=== PATIENT | female | born 1990 | race Caucasian/White ===

== ENCOUNTER 2018-08-01 02:21 | Emergency (ER) | payer OTHER ==
[~2018-08-01] VITALS: Ht 154.9 cm; Wt 49.9 kg
[2018-08-01 02:57] LABS: HEMATOCRIT 34.5 % (37.0-47.0); HEMOGLOBIN 10.9 gm/dL (12.0-15.0); MCH 19.1 pg (26.0-34.0); MCHC 31.6 g/dL (28.0-37.0); MCV 60.3 fL (80.0-100.0); PLATELET COUNT 377 thou/uL (150-400); RBC 5.73 mil/uL (4.20-5.00); RDW 14.5 % (10.5-14.5); WBC 8.9 thou/uL (4.0-11.0)
[2018-08-01 03:03] LABS: CALCIUM 9.5 mg/dL (8.5-10.1); CREATININE 0.7 mg/dL (0.6-1.0); POTASSIUM 3.4 mmol/L (3.5-5.1)
[2018-08-01 03:09] LABS: ALBUMIN 4.3 g/dL (3.4-5.0); TOTAL BILIRUBIN 0.4 mg/dL (<0.1-1.0); TOTAL PROTEIN 8.3 g/dL (6.4-8.2)
[2018-08-01 03:23] LABS: URINE BILIRUBIN NEGATIVE (Negative); URINE BLOOD 2+ (Negative); URINE CLARITY CLEAR; URINE COLOR YELLOW; URINE GLUCOSE-RANDOM* NEGATIVE (Negative); URINE KETONES NEGATIVE (Negative); URINE NITRITE-REFLEX NEGATIVE (Negative); URINE PROTEIN (DIPSTICK) NEGATIVE (Negative); URINE SPECIFIC GRAVITY >= 1.030 (1.005-1.035); URINE UROBILINOGEN 0.2 E.U./dl (0.2-1.0)
[2018-08-01 03:24] LABS: URINE LEUKOCYTES-REFLEX 1+ (Negative)
[2018-08-01 03:30] LABS: SQUAMOUS 4-10 Moderate /LPF (0-3)
[2018-08-01 03:31] LABS: BACTERIA-REFLEX 1-9 Few /HPF (None Seen); CASTS None Seen /LPF (None Seen); CRYSTALS None Seen /LPF (None Seen); MUCUS 4-6 Moderate strn/LPF (None Seen); URINE RBC 3-10 Few /HPF (0-2); URINE WBC-REFLEX 6-15 Few /HPF (0-5)
[2018-08-01 03:40] LABS: ABSOLUTE NEUTROPHILS 4.1 thou/uL (1.4-8.2)
[2018-08-01 03:42] LABS: MICROCYTES 3+
[2018-08-01 03:43] LABS: HYPOCHROMASIA 3+; PLATELET ESTIMATE NORMAL; POLYCHROMASIA 1+
[2018-08-01] MEDS ORDERED: PHENERGAN 25 MG25 M1 PO (04:36)
[2018-08-01] MEDS ORDERED: BENTYL 20 MG TA20 M1 PO (04:36)
[2018-08-01 04:41] VITALS: BP 102/57
== END 2018-08-01 04:43 | disposition home or self-care (01) ==
LOC: ER 02:21
PROVIDERS: Emergency Medicine
DX: R10.31 Right lower quadrant pain (principal); R11.2 Nausea with vomiting, unspecified